=== PATIENT | male | born 1975 | race Caucasian/White ===

== ENCOUNTER 2023-03-17 09:37 | Emergency (ER) | payer SELFPAY ==
[2023-03-17 09:40] VITALS: BP 196/119; PULSE 102; RESP 30; TEMP 36.7; O2SAT 100; BMI 24.3
--- NOTE | 2023-03-17 09:45 | ED.GENADULT ---
HPI - General Adult General Chief complaint: Anxiety Stated complaint: poss panic attack, L arm pain,numbness Time Seen by Provider: 03/17/23 09:39 Source: patient Mode of arrival: Ambulatory Limitations: no limitations History of Present Illness HPI narrative: Patient is a 47-year-old male who is here for evaluation of what he thinks is a panic attack and left arm pain and numbness. He has a history of hypertension. He takes metoprolol. He states he was on the phone with his father at the time of the onset of the symptoms. He states he is hyperventilating. Does not have a history of panic attacks. Has not done anything for his symptoms prior to arrival. Related Data Previous Rx's Medication Instructions Recorded azelastine 0.05 % eye drops 1 drp EYE-LEFT BID Conjunctivitis 12/01/21 #6 mL benzonatate 100 mg capsule 100 mg PO BID PRN cough #20 caps 07/12/22 codeine 10 mg-guaifenesin 200 mg/5 10 ml PO Q4-6H PRN cough #473 mL 07/14/22 mL oral liquid lorazepam 1 mg tablet (Ativan) 1 mg PO BID PRN anxiety #10 tabs 03/17/23 Allergies Allergy/AdvReac Type Severity Reaction Status Date / Time No Known Drug Allergies Allergy Verified 03/17/23 10:02 Review of Systems Constitutional Constitutional: Reports system reviewed and no additional complaints, except as documented Cardiovascular Cardiovascular: Reports system reviewed and no additional complaints, except as documented Respiratory Respiratory: Reports system reviewed and no additional complaints, except as documented Integumentary/Breasts Skin/Breast: Reports system reviewed and no additional complaints, except as documented Psychiatric Psychiatric: Reports system reviewed and no additional complaints, except as documented Patient History Social History Smoking Status: Never smoker Smoking Status: Never smoker Exam Initial Vital Signs Initial Vital Signs: Vital Signs Temperature 98.1 F 03/17/23 09:40 Pulse Rate 102 H 03/17/23 09:40 Respiratory Rate 30 H 03/17/23 09:40 Blood Pressure 196/119 H 03/17/23 09:40 Pulse Oximetry 100 03/17/23 09:40 Oxygen Delivery Method Room Air 03/17/23 09:40 HENKY Head: normal to inspection and normocephalic Resp Effort & Inspection: normal respiratory effort Auscultation: clear to auscultation bilaterally Cardio Rate: regular rate Rhythm: regular rhythm GI Inspection: normal to inspection and non-distended Neuro General: patient alert, patient awake and moves all extremities Psych Other: Very anxious, hyperventilating, sweating Course Orders Ordered: ED Orders 03/17/23 09:40 EKG-12 Lead Stat Discontinued Medications Lorazepam (Lorazepam 0.5 Mg Tablet) 1 mg PO NOW ONE Stop: 03/17/23 09:45 Last Admin: 03/17/23 09:48 Dose: 1 mg Documented By: FABIOLA Vital Signs Vital signs: Vital Signs - 8 hr 03/17/23 09:40 03/17/23 10:00 03/17/23 10:30 Temperature 98.1 F Pulse Rate 102 H 84 86 Respiratory Rate 30 H 14 13 Blood Pressure 196/119 H 159/105 H 137/93 H Pulse Oximetry 100 100 98 Oxygen Delivery Method Room Air Room Air Room Air Medical Decision Making ECG Data Attestation: I personally reviewed and interpreted this ECG as follows: Interpretation: Sinus rhythm Ventricular rate 89 Normal axis Normal QRS Normal QTC No ST T wave changes MDM Narrative Medical decision making narrative: Patient states he feels much better after the Ativan. I have low suspicion that this is ACS. His physical exam today is very consistent with a panic attack. He is never had a panic attack in the past but states that there has been quite a bit of family issues. Upon further questioning he actually was not on the phone with a family member when the symptoms started today but he states that last evening some family members moved in with him for a period of time. He states there was quite a bit of complaining from those family members and other life stressors that potentially caused his issues. Plan will be to send him home with a prescription for Ativan that he can have just in case the symptoms occur again. He was informed that if they become more persistent that he would need a talk with his primary doctor about maybe starting on a different more consistent medicine. He was given return precautions. He expressed understanding and agreement. Discharge Plan Departure Patient Disposition: Home Clinical Impression: Panic attack Instructions: Anxiety and Panic Attacks (Alternative Therapy) Activity Restrictions/Additional Instructions: I do recommend that if your symptoms become more persistent that you talk with your primary doctor about medications that maybe more appropriate in the one that was prescribed today. The medication from today is for occasional use. Return to the emergency department for new symptoms. Prescriptions: New lorazepam [Ativan] 1 mg tablet 1 mg PO BID PRN (Reason: anxiety) Qty: 10 0RF No Action azelastine 0.05 % drops 1 drp EYE-LEFT BID Qty: 6 0RF benzonatate 100 mg capsule 100 mg PO BID PRN (Reason: cough) Qty: 20 0RF codeine-guaifenesin 10-200 mg/5 mL liquid 10 ml PO Q4-6H PRN (Reason: cough) Qty: 473 0RF Referrals: Miscellaneous,Doctor, MD [Primary Care Provider] - Stand Alone Forms: Patient Portal/API
[2023-03-17] MEDS: LORazepam 0.5 MG TABLET 1 MG PO (09:48)
[2023-03-17 10:00] VITALS: BP 159/105; PULSE 84; RESP 14; O2SAT 100
[2023-03-17 10:30] VITALS: BP 137/93; PULSE 86; RESP 13; O2SAT 98
--- NOTE | 2023-03-17 10:37 | PC.NURSE ---
Pt reports feeling calm and states that he no longer has numbness in his extremities. Pt's respirations are regular and unlabored. Skin is warm, dry and appropriate color for his ethnicity. Pt's friend continues to be at the bedside. Pt reports no needs at this time.
[2023-03-17 11:16] VITALS: BP 130/86; PULSE 88; RESP 12; O2SAT 99
== END 2023-03-17 11:18 | disposition home or self-care (01) ==
PROVIDERS: Emergency Provider Emergency Medicine
DX: F41.0 Panic disorder [episodic paroxysmal anxiety] (principal)
CPT/HCPCS: 93005; 93010; 99283

== ENCOUNTER 2023-07-05 17:55 | Emergency (ER) | payer SELFPAY ==
[2023-07-05 18:03] VITALS: BP 176/102; PULSE 93; RESP 18; TEMP 37.4; O2SAT 98; BMI 24.3
--- NOTE | 2023-07-05 20:36 | ED.SKABFB ---
HPI - Skin/Abscess/Foreign Bdy General Chief complaint: Skin/Abscess/Foreign Body Stated complaint: Per pt poss. infection rectal area Time Seen by Provider: 07/05/23 19:50 Source: patient Mode of arrival: Ambulatory Limitations: no limitations History of Present Illness HPI narrative: Patient is a 47-year-old male who is here for evaluation of a possible infection in his rectal area. He states that approximately 1 month ago he noticed an area around his anus he denies any diarrhea. No constipation. No discomfort with bowel movements. No blood in his stool. No urinary symptoms. No abdominal tenderness. Denies any trauma. He was concerned that potentially he has a fistula. He has not having any stool incontinence. Related Data Previous Rx's Medication Instructions Recorded azelastine 0.05 % eye drops 1 drp EYE-LEFT BID Conjunctivitis 12/01/21 #6 mL benzonatate 100 mg capsule 100 mg PO BID PRN cough #20 caps 07/12/22 codeine 10 mg-guaifenesin 200 mg/5 10 ml PO Q4-6H PRN cough #473 mL 07/14/22 mL oral liquid lorazepam 1 mg tablet (Ativan) 1 mg PO BID PRN anxiety #10 tabs 03/17/23 Allergies Allergy/AdvReac Type Severity Reaction Status Date / Time No Known Drug Allergies Allergy Verified 03/17/23 10:02 Review of Systems Constitutional Constitutional: Reports system reviewed and no additional complaints, except as documented Gastrointestinal Gastrointestinal: Reports system reviewed and no additional complaints, except as documented Genitourinary Genitourinary: Reports system reviewed and no additional complaints, except as documented Integumentary/Breasts Skin/Breast: Reports system reviewed and no additional complaints, except as documented Neurologic Neurologic: Reports system reviewed and no additional complaints, except as documented Patient History Social History Smoking Status: Never smoker Smoking Status: Never smoker alcohol intake frequency: other Substance Use Type: marijuana Exam Initial Vital Signs Initial Vital Signs: Vital Signs Temperature 99.4 F 07/05/23 18:03 Pulse Rate 93 H 07/05/23 18:03 Respiratory Rate 18 07/05/23 18:03 Blood Pressure 176/102 H 07/05/23 18:03 Pulse Oximetry 98 07/05/23 18:03 Oxygen Delivery Method Room Air 07/05/23 18:03 Const General: cooperative and comfortable GI Inspection: normal to inspection and non-distended Palpation: soft Rectal Exam: visual inspection normal, No fissure, No laceration and No lesions Skin General: no rashes or lesions noted Course Orders Ordered: ED Orders 07/05/23 20:37 CT pelvis w con Stat 07/05/23 20:40 Basic Metabolic Panel Stat Complete Blood Count AUTO DIFF Stat Vital Signs Vital signs: Vital Signs - 8 hr 07/05/23 22:07 Pulse Rate 92 H Respiratory Rate 18 Blood Pressure 137/103 H Pulse Oximetry 99 Oxygen Delivery Method Room Air MDM - Skin/Abscess/Foreign Bdy Lab Data Attestation: I reviewed the patient's lab results. 07/05/23 20:40 07/05/23 20:40 Labs: Lab Results 07/05/23 Range/Units 20:40 WBC 6.4 (4.5-11.0) X10^3/uL RBC 5.17 (4.5-5.9) X10^6/uL Hgb 15.8 (13.5-17.5) g/dL Hct 45.4 (41-53) % MCV 87.7 (80-100) fL MCH 30.5 (26-34) PG MCHC 34.7 (30-36) % RDW 13.3 (11.6-14.8) % Plt Count 257 (150-400) X10^3/uL Neut % (Auto) 59.6 (50-75) % Lymph % (Auto) 30.4 (25-40) % [place] % (Auto) 7.3 (3-14) % Eos % (Auto) 2.3 (2-4) % Baso % (Auto) 0.4 (0-2) % Neut # (Auto) 3800 (4302-1287) /uL Lymph # (Auto) 2000 (5784-0554) /uL [place] # (Auto) 500 (0-900) /uL Eos # (Auto) 100 (0-450) /uL Baso # (Auto) 0 (0-100) /uL Sodium 140 (137-145) mmol/L Potassium 3.6 (3.4-5.1) mmol/L Chloride 102 (98-107) mmol/L Carbon Dioxide 31 (22-32) mmol/L BUN 18 (9-20) mg/dL Creatinine 1.06 (0.66-1.25) mg/dL Estimated GFR > 60 (>60) mL/min BUN/Creatinine Ratio 17.0 (6-22) Glucose 97 (70-100) mg/dL Calcium 9.6 (8.4-10.2) mg/dL Imaging Data ct pelvis: Radiologist's Impression: PROCEDURE: CT PELVIS W CON INDICATIONS: Eval for perirectal abscess TECHNIQUE: After the administration of intravenous contrast, 5 mm thick sections acquired from the iliac crests to the symphysis. 5 mm coronal and sagittal reformats were acquired. For radiation dose reduction, the following was used: automated exposure control, adjustment of mA and/or kV according to patient size. COMPARISON: None. FINDINGS: Image quality: Diagnostic. PELVIS: Peritoneum and Bowel: Bowel loops demonstrate normal wall thickness and caliber. Diverticulosis. No acute diverticulitis. No free fluid or air. Pelvic Organs: No pelvic mass. Bladder: Normal wall thickness, accounting for underdistension. No perivesicular fat stranding. Prostate is enlarged. Pelvic Nodes: No enlarged lymph nodes. Miscellaneous: No inguinal hernias are seen. No perianal or perirectal fluid collection. Bones: No aggressive osseous abnormality. IMPRESSION: 1. No perianal or perirectal abscess. 2. Diverticulosis without diverticulitis. 3. Enlargement of prostate. MDM Narrative Medical decision making narrative: CT scan shows no deep abscess. External exam is relatively benign. No overt fissures noted. No hemorrhoids. There was no signs of cellulitis. No abscesses felt. No indication for antibiotics. Will discharge patient home with instructions to follow-up with general surgery as he may need further evaluation to include an exam under anesthesia or anoscope or flex sig. He has not had a colonoscopy either. Discussed return precautions and follow-up instructions. Patient expressed understanding and agreement plan. Discharge Plan Departure Patient Disposition: Home Clinical Impression: Inflammation of the rectum Activity Restrictions/Additional Instructions: Your labs and CT scan today are very reassuring. I recommend that you contact the general surgery department at the number provided below for a follow-up as an outpatient. Return to the emergency department for new or worsening symptoms. Prescriptions: No Action azelastine 0.05 % drops 1 drp EYE-LEFT BID Qty: 6 0RF benzonatate 100 mg capsule 100 mg PO BID PRN (Reason: cough) Qty: 20 0RF codeine-guaifenesin 10-200 mg/5 mL liquid 10 ml PO Q4-6H PRN (Reason: cough) Qty: 473 0RF lorazepam [Ativan] 1 mg tablet 1 mg PO BID PRN (Reason: anxiety) Qty: 10 0RF Referrals: Paco Osuna MD [Physician] - Miscellaneous,MD Tosin [Primary Care Provider] - Stand Alone Forms: Patient Portal/API
[2023-07-05 20:50] LABS: Add Manual Diff / Slide Review NO; Basophils Absolute Auto 0 /uL (0-100); Basophils Percent Auto 0.4 % (0-2); Eosinophils Absolute Auto 100 /uL (0-450); Eosinophils Percent Auto 2.3 % (2-4); Hematocrit 45.4 % (41-53); Hemoglobin 15.8 g/dL (13.5-17.5); Lymphocytes Absolute Auto 2000 /uL (1100-4500); Lymphocytes Percent Auto 30.4 % (25-40); Mean Corpuscular HGB Conc 34.7 % (30-36); Mean Corpuscular Hemoglobin 30.5 PG (26-34); Mean Corpuscular Volume 87.7 fL (80-100); Monocytes Absolute Auto 500 /uL (0-900); Monocytes Percent Auto 7.3 % (3-14); Neutrophils Absolute Auto 3800 /uL (1500-7000); Neutrophils Percent Auto 59.6 % (50-75); Platelet Count 257 X10^3/uL (150-400); Red Blood Cell Count 5.17 X10^6/uL (4.5-5.9); Red Cell Distribution Width 13.3 % (11.6-14.8); White Blood Cell Count 6.4 X10^3/uL (4.5-11.0)
[2023-07-05 21:07] LABS: Blood Urea Nitrogen 18 mg/dL (9-20); Calcium 9.6 mg/dL (8.4-10.2); Carbon Dioxide 31 mmol/L (22-32); Chloride 102 mmol/L (98-107); Estimated Glomerular Filt Rate > 60 mL/min (>60); Glucose 97 mg/dL (70-100); HEMOLYSIS < 15 (0-50); Potassium 3.6 mmol/L (3.4-5.1); Sodium 140 mmol/L (137-145)
[2023-07-05 22:07] VITALS: BP 137/103; PULSE 92; RESP 18; O2SAT 99
== END 2023-07-05 22:08 | disposition home or self-care (01) ==
PROVIDERS: Emergency Provider Emergency Medicine
DX: K62.89 Other specified diseases of anus and rectum (principal)
CPT/HCPCS: 36415; 72193; 80048; 85025; 99283; 99284